=== PATIENT | male | born 1980 | race American Indian/Alaskan Native ===

== ENCOUNTER 2016-09-30 11:29 | Emergency (ER) | payer BC ==
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
[2016-09-30 12:50] LABS: Basophils % (Auto) 0.7 % (0.0-1.8); Eosinophils % (Auto) 0.6 % (0.0-4.3); Hematocrit 51.6 % (35.5-45.6); Hemoglobin 17.8 gm/dl (11.8-15.2); Mean Corpuscular HGB Conc 35 % (32-34); Mean Corpuscular Hemoglobin 30 pg (28-32); Mean Corpuscular Volume 87 fl (84-94); Platelet Count 251 K/mm3 (140-440); Red Blood Count 5.93 M/mm3 (3.65-5.03); Red Cell Distribution Width 13.7 % (13.2-15.2); White Blood Count 11.2 K/mm3 (4.5-11.0)
[2016-09-30 13:05] LABS: Anion Gap 21 mmol/L; BUN/Creatinine Ratio 15.55; Blood Urea Nitrogen 14 mg/dL (9-20); Calcium 9.6 mg/dL (8.4-10.2); Carbon Dioxide 28 mmol/L (22-30); Chloride 86.9 mmol/L (98-107); Glucose 114 mg/dL (75-100); Sodium 133 mmol/L (137-145)
[2016-09-30 13:10] LABS: Potassium 2.8 mmol/L (3.6-5.0)
[2016-09-30] MEDS ORDERED: K-DUR PO ONE (15:29)
[2016-09-30 16:10] LABS: Urine Drugs of Abuse Note Disclamer
[2016-09-30 16:22] LABS: Bilirubin,Urine NEG (Negative); Blood,Urine SM (Negative); Ketones,Urine NEG (Negative); Leukocyte Esterase,Urine TR (Negative); Mucus,Urine FEW /HPF; Nitrite,Urine NEG (Negative); Urobilinogen,Urine < 2.0 mg/dL (<2.0)
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
[2016-09-30 19:59] VITALS: BP 132/91
== END 2016-09-30 20:03 | disposition home or self-care (01) ==
LOC: ED 11:29
DX: E87.6 Hypokalemia (principal); I10 Essential (primary) hypertension; F17.200 Nicotine dependence, unspecified, uncomplicated
CPT/HCPCS: 36415; 80048; 80307; 81001; 82140; 85025; 99284; G0480; 80320

== ENCOUNTER 2016-12-13 19:13 | Emergency (ER) | payer SELFPAY ==
[2016-12-13 20:36] LABS: Hematocrit 44.9 % (35.5-45.6); Hemoglobin 15.7 gm/dl (11.8-15.2); Mean Corpuscular HGB Conc 35 % (32-34); Mean Corpuscular Hemoglobin 30 pg (28-32); Mean Corpuscular Volume 85 fl (84-94); Platelet Count 207 K/mm3 (140-440); Red Blood Count 5.31 M/mm3 (3.65-5.03); Red Cell Distribution Width 13.4 % (13.2-15.2); White Blood Count 12.2 K/mm3 (4.5-11.0)
[2016-12-13 20:37] LABS: Anion Gap 16 mmol/L; BUN/Creatinine Ratio 12.22; Blood Urea Nitrogen 11 mg/dL (9-20); Calcium 9.1 mg/dL (8.4-10.2); Carbon Dioxide 28 mmol/L (22-30); Chloride 100.2 mmol/L (98-107); Glucose 120 mg/dL (75-100); Potassium 3.2 mmol/L (3.6-5.0); Sodium 141 mmol/L (137-145)
--- NOTE | 2016-12-14 00:31 | Emergency Department Report ---
HPI - General Chief Complaint: Medical Clearance Time Seen by Provider: 12/13/16 23:53 - HPI HPI: he is a 36-year-old male presents to ED stating he was about 3 weeks ago with low potassium and wanted to have his potassium rechecked. Patient states he is taking half potassium tablets on [employer] patient also states he is on hydrochlorothiazide 25 mg for his blood pressure and recently had his abnormal appearing switched from 25mg to 10 mg Denies fevers/chills/nausea/vomiting/chest pain/shortness of breath or any other problems ED Past Medical Hx - Past Medical History Hx Hypertension: Yes - Surgical History Past Surgical History?: No - Social History Smoking Status: Current Every Day Smoker Substance Use Type: None - Medications Home Medications: Home Medications Medication Instructions Recorded Confirmed Last Taken Type HCTZ 25 mg PO DAILY 09/30/16 09/30/16 09/30/16 History amLODIPine [Norvasc] 10 mg PO DAILY 09/30/16 09/30/16 09/30/16 History Potassium Chloride [K-Tab ER] 20 meq PO BID #6 tablet.er 12/14/16 Unknown Rx ED Review of Systems ROS: Stated complaint: POSSIBLE LOW POTASSIUM Other details as noted in HPI Constitutional: denies: chills, fever Eyes: denies: eye pain, eye discharge, vision change ENT: denies: ear pain, throat pain Respiratory: denies: cough, shortness of breath, wheezing Cardiovascular: denies: chest pain, palpitations Endocrine: no symptoms reported Gastrointestinal: denies: abdominal pain, nausea, vomiting, diarrhea, constipation Genitourinary: denies: urgency, dysuria, frequency, hematuria, discharge Musculoskeletal: denies: back pain, joint swelling, arthralgia Skin: denies: rash, lesions Neurological: denies: headache, weakness, paresthesias Psychiatric: denies: anxiety, depression Hematological/Lymphatic: denies: easy bleeding, easy bruising Physical Exam - Physical Exam Vital Signs: Vital Signs 12/13/16 19:58 Temperature 98.2 F Pulse Rate 80 Respiratory 18 Rate Blood Pressure 136/82 O2 Sat by Pulse 100 Oximetry Physical Exam: GENERAL: Alert and oriented x3, no apparent distress, Normal Gait, atraumatic. HEAD: Head is normocephalic and a-traumatic. EYES: Extra ocular muscles are intact. Pupils are equal, round, and reactive to light and accommodation. EARS: symetrical, atraumatic, non tender, ear canal clear and moderate cerumen, tympanic membrance non inflamed. gross auditory nml bilaterally. NOSE: Nose symetrical, Nontender,Nares appeared normal. MOUTH:Mouth is well hydrated and without lesions. Tonsils nonerythematous or swollen, Uvula midline, Tongue not elevated. Mucous membranes are moist. Posterior pharynx clear, no exudate or lesions. Patent airways. NECK: Supple. Non edematous, No carotid bruits. No lymphadenopathy or thyromegaly. No C-spine tenderness LUNGS: Symetrical with respiration, No wheezing, no rales or crackles, CTAB. HEART: S1, S2 present, regular rate and rhythm without murmur, no rubs, no gallops. PSYCHIATRIC: Mood is congruent with affect, denies suicidal or homicidal ideations. SKIN: Warm and dry, No lesions, No ulceration or induration present. ED Course Vital Signs 12/13/16 19:58 Temperature 98.2 F Pulse Rate 80 Respiratory 18 Rate Blood Pressure 136/82 O2 Sat by Pulse 100 Oximetry ED Medical Decision Making - Lab Data Result diagrams: 12/13/16 20:06 12/13/16 20:06 - Medical Decision Making 36-year-old male presents with hypokalemia with no symptoms ED course: CBC and BMP ordered. BMP shows low potassium. Discussed findings with patient. Patient received 40 mg of potassium chloride in ED. Discussed with patient that hydrochlorothiazide does decrease potassium levels and blood. Discussed the patient did take a couple of days medication of potassium. Discussed to follow up with primary care physician for continued management and possibly blood pressure medication management and control if hypokalemia becomes a problem, Vital Signs are stable patient is in no acute or respiratory distress. He is alert and oriented 3 verbalizes understanding instructions given. Critical care attestation.: If time is entered above; I have spent that time in minutes in the direct care of this critically ill patient, excluding procedure time. ED Disposition Clinical Impression: Low blood potassium Disposition: DISCHARGED TO HOME OR SELFCARE Is pt being admited?: No Does the pt Need Aspirin: No Instructions: Hypokalemia (ED) Additional Instructions: Follow-up with primary care physician as referred. Take your medication as prescribed. If any new symptoms return to ED. Prescriptions: Potassium Chloride [K-Tab ER] 20 meq PO BID #6 tablet.er Referrals: PRIMARY CAREMD [Primary Care Provider] - 3-5 Days VIKKI GARCIA MD [Referring] - 3-5 Days [facility] [Outside] - 3-5 Days [facility] [Outside] - 3-5 Days Forms: Work/School Release Form(ED) Time of Disposition: 00:59
[2016-12-14] MEDS ORDERED: K-DUR PO ONE (01:44)
[2016-12-14 03:22] VITALS: BP 134/80
== END 2016-12-14 01:55 | disposition home or self-care (01) ==
LOC: ED 19:13
DX: E87.6 Hypokalemia (principal); I10 Essential (primary) hypertension; F17.200 Nicotine dependence, unspecified, uncomplicated
CPT/HCPCS: 36415; 80048; 85027; 99283